=== PATIENT | female | born 1990 | race Hispanic/Latino ===

== ENCOUNTER 2019-05-09 15:47 | Outpatient (CLI) | payer BC ==
--- NOTE | 2019-05-09 16:12 | RAD ---
RADIOGRAPH LEFT WRIST 2 VIEWS: DATE: 05/09/2019 HISTORY: 28-year-old female with left wrist pain . FINDINGS: No fracture is identified. However, if there is snuffbox tenderness following trauma that suggests an occult scaphoid fracture, then the general recommendation is immobilization and follow-up imaging in 5-10 days. Alignment is normal. Joint spaces are maintained without erosions or large osteophytes. There are no abnormal soft tissue calcifications. No evidence of periostitis, permeative lesion, osteolytic lesion, or osteoblastic lesion. IMPRESSION: Normal radiograph of wrist.
== END 2019-05-09 15:48 | disposition home or self-care (01) ==
LOC: SCSRAD 15:47
DX: M67.432 Ganglion, left wrist (principal); M25.532 Pain in left wrist